=== PATIENT | female | born 1980 | race Caucasian/White ===

== ENCOUNTER 2021-05-15 23:23 | Emergency (ER) | payer SELFPAY ==
[2021-05-15] MEDS ORDERED: Clindamycin 150 MG CAP ONE (23:59)
[2021-05-15] MEDS ORDERED: Boostrix 0.5 ML (Tdap) VIAL ONE (23:59)
== END 2021-05-16 00:25 | disposition home or self-care (01) ==
LOC: MADERS 23:23
DX: S10.86XA Insect bite of other specified part of neck, initial encounter (principal); I10 Essential (primary) hypertension; F17.200 Nicotine dependence, unspecified, uncomplicated; W57.XXXA Bitten or stung by nonvenomous insect and other nonvenomous arthropods, initial encounter
CPT/HCPCS: 90471; 90715; 99283